=== PATIENT | female | born 1985 | race African-American/Black ===

== ENCOUNTER 2019-12-21 09:52 | Inpatient (IN) | payer BC ==
[2020-01-08] MEDS ORDERED: Bicitra 30 ML UDCUP PO SCH (10:30)
[2020-01-08] MEDS ORDERED: Promethazine HCl 25 MG/ML VIAL IM PRN ×2 (10:30→23:46)
[2020-01-08] MEDS ORDERED: Ondansetron PF 4 MG/2 ML Vial IVP PRN ×2 (10:30→23:46)
[2020-01-08] MEDS ORDERED: Butorphanol Tartrate 1 MG/ML VIAL SLOW IVP PRN (10:30)
[2020-01-08] MEDS ORDERED: CEFAZOLIN 2 GM in Premix Bag 1 BAG IVPB SCH (10:30)
[2020-01-08] MEDS ORDERED: hydrALAZINE 20 MG/ML VIAL SLOW IVP PRN ×2 (10:30→21:15)
[2020-01-08 11:04] VITALS: BMI 44.0
[2020-01-08] MEDS: Lactated Ringer's 1,000 ML IV SCH ×2 (11:13→14:35)
[2020-01-08 11:59] LABS: Hemoglobin 13.7 g/dL (12.0-16.0); Mean Corpuscular Hemoglobin 35.1 pg (27.0-31.0); Mean Platelet Volume 8.7 fL (7.4-10.4); Platelet Count 228 thou/uL (130-400); RBC Distribution Width 13.3 % (11.5-14.5); White Blood Cell (WBC) Count 10.9 thou/uL (4.8-10.8)
[2020-01-08] MEDS ORDERED: Ondansetron PF 4 MG/2 ML Vial ONE ×2 (12:01→16:59)
[2020-01-08] MEDS ORDERED: PHENYLEPHRINE-NS 100 MCG/ML 10 ML SYRINGE ONE ×8 (12:01→18:10)
[2020-01-08 12:35] LABS: HBSAg Index 0.15 S/CO (0-0.99); Hep B Surf Ag Non-Reactive S/CO (NonReactive)
[2020-01-08 12:36] LABS: Syphilis Antibody Nonreactive (Nonreactive); Syphilis Antibody Index 0.02 S/CO (<1.00 Non-Reactive)
[2020-01-08 12:57] LABS: Uric Acid 6.5 mg/dL (2.6-6.0)
[2020-01-08 13:01] LABS: #Basophils 0.1 thou/uL (0.0-0.2); #Eosinphils 0.1 thou/uL (0.0-0.7); #Lymphocytes 1.3 thou/uL (1.20-3.40); #Monocytes 0.4 thou/uL (0.11-0.59); #Neutrophils 9.1 thou/uL (1.40-6.50); %Basophils 0.5 % (0.0-1.0); %Eosinophils 0.8 % (0.0-10.0); %Lymphocytes 11.6 % (21.0-51.0); %Monocytes 3.7 % (0.0-10.0); %Neutrophils 83.3 % (42.0-75.0); Hemoglobin 13.8 g/dL (12.0-16.0); Mean Corpuscular Hemoglobin 33.4 pg (27.0-31.0); Mean Platelet Volume 8.2 fL (7.4-10.4); Platelet Count 232 thou/uL (130-400); RBC Distribution Width 13.2 % (11.5-14.5); Red Blood Cell (RBC) Count 4.13 mill/uL (4.20-5.40); White Blood Cell (WBC) Count 10.9 thou/uL (4.8-10.8)
[2020-01-08] MEDS ORDERED: HYDROmorphone 2 MG/ML VIAL SLOW IVP PRN (16:57)
[2020-01-08] MEDS ORDERED: Meperidine HCl/PF 25 MG/ML VIAL SLOW IVP PRN (16:57)
[2020-01-08] MEDS ORDERED: Ondansetron HCl/PF 4 MG/2 ML Vial IVP PRN (16:57)
[2020-01-08] MEDS ORDERED: Oxytocin 10 UNITS/ML VIAL ONE ×7 (16:59→18:16)
[2020-01-08] MEDS ORDERED: Ketorolac Tromethamine 30 MG/ML VIAL IVP SCH (17:00)
[2020-01-08] MEDS ORDERED: Methylergonovine 0.2 MG/ML VIAL ONE (17:40)
[2020-01-08] MEDS ORDERED: Promethazine HCl 25 MG/ML VIAL ONE (17:41)
[2020-01-08] MEDS ORDERED: Misoprostol 200 MCG TAB ONE (17:55)
[2020-01-08] MEDS ORDERED: Midazolam HCl 2 mg/2 ml Vial ONE ×2 (18:01)
[2020-01-08] MEDS ORDERED: NS / Oxytocin 40 units/1000ml 1,000 ML IV SCH (21:15)
[2020-01-08] MEDS ORDERED: diphenhydrAMINE 25 MG CAP PO PRN (21:15)
[2020-01-08] MEDS ORDERED: Bisacodyl 10 MG SUPP PR PRN (21:15)
[2020-01-08] MEDS ORDERED: Lanolin Ointment 7 GM TUBE TOP PRN (21:15)
[2020-01-08] MEDS ORDERED: traMADol HCl 50 MG TAB PO PRN (21:15)
[2020-01-08] MEDS ORDERED: Ketorolac Tromethamine 30 MG/ML VIAL ONE (21:22)
[2020-01-08] MEDS ORDERED: Ferrous Sulfate 325 MG TAB PO SCH (21:30)
[2020-01-08] MEDS ORDERED: Docusate Calcium (SURFAK) 240 MG CAP PO SCH (21:30)
[2020-01-08] MEDS: Ketorolac Tromethamine 30 MG/ML VIAL IVP PRN (23:30)
[2020-01-08] MEDS ORDERED: diphenhydrAMINE 50 MG/ML VIAL IVP PRN (23:46)
[2020-01-08] MEDS ORDERED: Hydrocerin (Eucerin) Cream 120 gm Jar TOP PRN (23:46)
[2020-01-08] MEDS ORDERED: Promethazine HCl 25 MG SUPP PR PRN (23:46)
[2020-01-08] MEDS ORDERED: NO PO,IM,IV OR SC NARCOTICS FOR 12HR EXCEPT BY ANESTHESIA PO SCH (23:46)
[2020-01-08] MEDS ORDERED: Naloxone HCl 0.4 mg/ml Vial IV PRN ×3 (23:46)
[2020-01-09] MEDS: Ibuprofen 800 MG TAB PO SCH ×4 (04:44→21:56)
[2020-01-09] MEDS: Ketorolac Tromethamine 30 MG/ML VIAL IVP PRN (04:49)
[2020-01-09 06:26] LABS: Hemoglobin 7.5 g/dL (12.0-16.0); Mean Platelet Volume 8.5 fL (7.4-10.4); Platelet Count 128 thou/uL (130-400); RBC Distribution Width 12.9 % (11.5-14.5); Red Blood Cell (RBC) Count 2.09 mill/uL (4.20-5.40); White Blood Cell (WBC) Count 15.9 thou/uL (4.8-10.8)
[2020-01-09] MEDS ORDERED: Ferrous Sulfate 325 MG TAB PO SCH (09:00)
[2020-01-09] MEDS ORDERED: Adacel (T-DAP) 0.5 ML SYRINGE IM ONE (09:00)
[2020-01-09] MEDS: Acetaminophen/Codeine 30-300mg Tablet PO PRN ×2 (09:53→18:03)
[2020-01-09] MEDS: Prenatal Vitamin 1 TAB PO SCH (09:54)
[2020-01-09] MEDS: Ferrous Sulfate 325 MG TAB PO SCH ×2 (09:54→17:01)
[2020-01-09] MEDS: Docusate Calcium (SURFAK) 240 MG CAP PO SCH ×2 (09:55→21:56)
[2020-01-09] MEDS: Simethicone Chewable 80 MG TAB PO PRN (21:56)
[2020-01-10] MEDS: Acetaminophen/Codeine 30-300mg Tablet PO PRN ×4 (04:20→23:52)
[2020-01-10] MEDS: Ibuprofen 800 MG TAB PO SCH ×3 (05:20→20:36)
[2020-01-10] MEDS: Ferrous Sulfate 325 MG TAB PO SCH ×2 (08:36→17:09)
[2020-01-10] MEDS: Prenatal Vitamin 1 TAB PO SCH (08:37)
[2020-01-10] MEDS: Docusate Calcium (SURFAK) 240 MG CAP PO SCH ×2 (08:38→20:36)
[2020-01-10] MEDS: Simethicone Chewable 80 MG TAB PO PRN ×2 (08:45→20:36)
[2020-01-11] MEDS: Simethicone Chewable 80 MG TAB PO PRN (04:46)
[2020-01-11] MEDS: Ibuprofen 800 MG TAB PO SCH ×3 (04:46→20:54)
[2020-01-11] MEDS: Acetaminophen/Codeine 30-300mg Tablet PO PRN ×3 (04:47→19:06)
[2020-01-11] MEDS: Prenatal Vitamin 1 TAB PO SCH (08:39)
[2020-01-11] MEDS: Ferrous Sulfate 325 MG TAB PO SCH ×2 (08:39→17:15)
[2020-01-11] MEDS: Docusate Calcium (SURFAK) 240 MG CAP PO SCH ×2 (08:41→20:54)
--- NOTE | 2020-01-11 10:26 | OP ---
DATE OF PROCEDURE: 01/08/2020 RESIDENT SURGEON: Dr. Mariela Suarez PREOPERATIVE DIAGNOSES: 1. Twin gestation at 36-1/7th weeks. 2. Preeclampsia. 3. Compound presentation. POSTOPERATIVE DIAGNOSES: 1. Twin gestation at 36-1/7th weeks. 2. Preeclampsia. 3. Compound presentation. 4. hemorrhage. PROCEDURE PERFORMED: Primary low transverse section. ANESTHESIA: Spinal catheterization. FINDINGS: 1. Twin gestation with transverse-transverse presentation. 2. Grade 3 placenta. 3. Severe preeclampsia with blood pressures 170-180 over 100s. 4. Twin A vigorous female at 4 pounds 11 ounces, Apgars 8 and 9, twin B depressed female 4 pounds 11 ounces, Apgars 1 and 9. 5. Normal uterus, tubes, and ovaries 6. hemorrhage secondary to uterine atony COMPLICATIONS: hemorrhage.with blood loss > 2000cc ESTIMATED BLOOD LOSS: 9970-4459 mL. (QBL= 2246) HISTORY AND INDICATIONS: Mrs. Noy Villanueva is a very pleasant 34-year-old female who is followed in my clinic for obstetric care. Noy has a twin gestation, which has been complicated by gestational hypertension progressing to preeclampsia. She was started on blood pressure medicine at 33 weeks and placed at bed rest. Her pressures remained stable until late last week, at which time, her treated pressures were in the 150s over 90s. She was given Celestone on Wednesday afternoon and kept at bedrest all weekend. She returned to the office this morning and reported a headache which was unrelieved by Tylenol. In addition, her blood pressures were significantly elevated. Her initial blood pressure was 180/106, when placed at rest they dropped to 160s over 100s. She had 2+ protein. Ultrasound revealed good concordant growth with twins. She had a known grade 3 placenta with decreasing amniotic fluid. Because of these findings, a decision was made to move towards delivery. Noy was sent to Labor and delivery this morning where she was given her 2nd steroid injection and prepared for a primary for the above-noted indications. DESCRIPTION OF PROCEDURE: After thorough consent and counseling, Mrs. Villanueva was taken to the operating room and an adequate level of anesthesia was obtained via spinal catheterization. The patient was prepped and draped in usual sterile fashion for abdominal surgery. A Norman was placed in the bladder which was noted to be draining clear urine. A team time-out was performed per protocol. Attention was then turned to performing the primary low-transverse section. A Pfannenstiel incision was made and carried sharply to the fascia which was also sharply incised. The midline was identified. The rectus muscles were retracted laterally. The abdominoperitoneal cavity was entered with usual safeguard carried out. A retractor was placed and a bladder flap was created on the vesicouterine peritoneum. A large venous sinus was noted anteriorly secondary to the large twin placenta. A low-transverse incision was carefully made on the well-developed lower uterine segment. Upon entering the amniotic sac of twin A, copious amount of clear amniotic fluid was visualized. Twin A was noted to be in transverse presentation. The head was carefully delivered into the low-transverse incision. Baby was bulb suctioned on the abdomen. Shoulders and body were then delivered in an atraumatic fashion. The cord was doubly clamped and cut. The infant was handed to the tile and marble installer team in attendance for the delivery. Attention was then turned to the delivery of twin B. Twin B was identified and noted to be back down in transverse lie. Amniotomy was performed and copious amount of clear amniotic fluid was noted. Internal version was performed and the breech was carefully delivered in an atraumatic fashion. Using the Yuriy maneuver, shoulders and after coming head were then delivered also in an atraumatic fashion. Cord was doubly clamped and cut. The was handed to the neonatology team that was present for twin B. Twin A was noted to be a vigorous viable female weighing 4 pounds 11 ounces with Apgars of 8 and 9 at 1 and 5 minutes respectively. Twin B was noted to be slightly depressed when delivered. She was 4 pounds 11 ounces as well, with Apgars of 1 and 9 obtained at 1 and 5 minutes respectively. The baby responded well to conservative resuscitative measures. Brisk bleeding was noted from the venous sinus on the low-transverse incision. The placenta was manually delivered and the uterus was exteriorized. Extremely poor tone was noted. Uterine cavity was cleared of any remaining clot and fluid. Brisk massage was performed. The lower segment was packed and a dose of Methergine was given. Increased Pitocin was added to the IV fluids. Manual massage was continued until some time was noted. The low- transverse incision was then closed with a running locking ligature of #1 chromic. A 2nd imbricating layer was placed to facilitate strength and hemostasis. Several [id number] ligatures of #1 chromic were also placed for additional strength and hemostasis. We continued to perform manual massage until adequate tone was noted. The posterior cul-de-sac gutters were cleared of clot and fluid. Uterus, fallopian tubes, and ovaries were inspected and noted to be normal. The uterus was returned to the abdomen. Good tone and hemostasis was again noted. Lap, sponge, and needle counts were correct. The peritoneum was then closed with a running ligature of 2-0 Vicryl suture. The rectus muscles were reapproximated in the midline with interrupted ligatures of 2-0 Vicryl suture. The fascia was then closed with two ligatures of 0 Vicryl suture which was tied in the midline. Good fascial integrity was appreciated. The incision was irrigated with copious amount of warm normal saline. Hemostasis was obtained with Bovie cauterization. The subcutaneous tissue was closed with interrupted ligatures of 2-0 plain suture. The skin was closed with subcuticular stitch of 4-0 Monocryl and dressed with Dermabond. A tight pressure dressing was placed postoperatively as well as the ice pack. Lap, sponge, and needle counts were correct x4 as an additional count was performed secondary to the hemorrhage, which was encountered. The patient was then given 800 mcg dose of Cytotec per rectum. Estimated blood loss during the surgical procedure was 2000-2200mL. The patient was awakened and returned to the recovery room in stable condition. Immediately following surgery, the was made aware of the surgical procedure and operative findings. Questions were answered to their satisfaction. The patient and her were very appreciative of the care rendered. Job ID: [id number] [facility]
[2020-01-11 10:28] LABS: Hemoglobin 6.7 g/dL (12.0-16.0); Mean Corpuscular HGB CONC 34.1 g/dL (32.0-36.0); Mean Corpuscular Hemoglobin 35.9 pg (27.0-31.0); Mean Platelet Volume 8.2 fL (7.4-10.4); Platelet Count 178 thou/uL (130-400); RBC Distribution Width 14.2 % (11.5-14.5); Red Blood Cell (RBC) Count 1.87 mill/uL (4.20-5.40); White Blood Cell (WBC) Count 16.9 thou/uL (4.8-10.8)
[2020-01-12] MEDS: Acetaminophen/Codeine 30-300mg Tablet PO PRN ×3 (02:20→16:38)
[2020-01-12] MEDS: Ibuprofen 800 MG TAB PO SCH ×3 (05:04→14:09)
[2020-01-12] MEDS ORDERED: Ondansetron ODT 4 MG TAB PO PRN (05:27)
[2020-01-12 07:49] VITALS: BP 123/66; TEMP 98.5
[2020-01-12] MEDS: Prenatal Vitamin 1 TAB PO SCH (08:15)
[2020-01-12] MEDS: Docusate Calcium (SURFAK) 240 MG CAP PO SCH (08:15)
[2020-01-12] MEDS: Ferrous Sulfate 325 MG TAB PO SCH (08:15)
== END 2020-01-12 17:09 | disposition home or self-care (01) | DRG 787 ==
LOC: EDSTATUS 10:21 → L&D 01-08 10:22 → 3SW 01-08 22:31
PROVIDERS: ADMIT Obstetrics & Gynecology; ATTEND Obstetrics & Gynecology
PROC: 10D00Z1 Extraction of Products of Conception, Low, Open Approach (ICD-10-PCS; principal; 2020-01-08)
DX: O30.003 Twin pregnancy, unspecified number of placenta and unspecified number of amniotic sacs, third trimester (principal); O72.1 Other immediate postpartum hemorrhage; Z3A.36 36 weeks gestation of pregnancy; Z37.2 Twins, both liveborn; O14.14 Severe pre-eclampsia complicating childbirth; O32.6XX0 Maternal care for compound presentation, not applicable or unspecified
CPT/HCPCS: 36415; 36416; 51702; 81003; 83615; 84450; 84460; 84550; 85027; 86780; 86850; 86900; 86901; 87340; 88307; J0690; J1885; J2210; J2250; J2405; J2550; J2590; Q0162